=== PATIENT | female | born 1980 | race Caucasian/White ===

== ENCOUNTER 2016-10-27 22:12 | Emergency (ER) | payer SELFPAY ==
[~2016-10-27 22:12] MED LIST: OXYC-323 PO
[2016-10-27 23:03] LABS: BILIRUBIN,URINE NEGATIVE (NEG); GLUCOSE,URINE NEGATIVE (NEG); NITRITE,URINE NEGATIVE (NEG); PH,URINE 5.5; PROTEIN,URINE NEGATIVE (NEG-TRACE); UROBILINOGEN,URINE 0.2 mg/dL (0.2 mg/dL)
[2016-10-27 23:08] LABS: BACTERIA,URINE MOD /HPF (0-FEW); RBC,URINE 0 /HPF (0-2); SQUAMOUS EPITHELIAL CELL,UR FEW /LPF; WBC,URINE 20-40 /HPF (0-4)
[2016-10-27] MEDS ORDERED: PHEN-318 PO (23:14)
[2016-10-27] MEDS ORDERED: NAPROXEN 500 MG TABLET PO ONE (23:15)
[2016-10-27] MEDS ORDERED: PHENAZOPYRIDINE 200 MG TABLET. PO ONE (23:15)
[2016-10-27 23:32] VITALS: BP 101/56
--- NOTE | 2016-10-28 01:11 | ED.ADGEN ---
Past Medical History Past Medical History: Ectopic Past Surgical History: Alcohol Use: None Drug Use: None Adult General Chief Complaint Chief Complaint: ABDOMINAL PAIN HPI HPI Patient is a 35 year old woman, history of ectopic , who is Irish speaking only, who presents the emergency department with a complaint of "burning", in the lower abdomen, and abdominal pain. Patient denies any nausea or vomiting, any fevers, complains occasional chills, denies any diarrhea, denies any weakness, numbness, tingling, any hematuria, although she is experiencing frequency. Patient has ciprofloxacin and ibuprofen in the ED, she was seen yesterday at a clinic, and prescribed ciprofloxacin ibuprofen. Patient states that she did not believe that she had a urinary tract infection, however after discussion and reading the label and prescribing dosage, I do believe that the patient was prescribed for Floxin for a least a presumed urinary tract infection. Patient states she has been taking antibiotics as directed, and was given a three-day course, she states she last took the Cipro Floxin and the ibuprofen at 7:30 in the evening but continues to have "burning", and her lower abdomen. No recent travel or surgery, no history of swelling extremities, any rashes, any other complaints. No discharge or drainage from the vagina, no burning or itching, no concerns for sexually transmitted infections. All history and examination obtained with the assistance of language line american sign language interpreter. Review of Systems Review of Systems Constitutional: Denies fever or chills. [] Eyes: Denies change in visual acuity. [] HENT: Denies nasal congestion or sore throat. [] Respiratory: Denies cough or shortness of breath. [] Cardiovascular: Denies chest pain or edema. [] GI: Denies nausea, vomiting, bloody stools or diarrhea. Complaining of "burning " feeling in the suprapubic region. : Denies dysuria. Frequency. Musculoskeletal: Denies back pain or joint pain. [] Integument: Denies rash. [] Neurologic: Denies headache, focal weakness or sensory changes. [] Endocrine: Denies polyuria or polydipsia. [] Lymphatic: Denies swollen glands. [] Psychiatric: Denies depression or anxiety. [] Current Medications Current Medications Current Medications Medications (Trade) Dose Ordered Sig/Nicholas Start Time Stop Time Status Last Admin Dose Admin Naproxen (Naprosyn) 500 mg 1X ONCE 9/7/17 23:15 10/27/16 23:16 DC 10/27/16 23:28 500 MG Phenazopyridine HCl (Pyridium) 200 mg 1X ONCE 10/27/16 23:15 10/27/16 23:16 DC 10/27/16 23:28 200 MG Allergies Allergies Allergies Coded Allergies Type Severity Reaction Last Updated Verified No Known Drug Allergies 02/27/15 No Physical Exam Physical Exam Constitutional: Well developed, well nourished, no acute distress, non-toxic appearance. [] HENT: Normocephalic, atraumatic, bilateral external ears normal, oropharynx moist, no oral exudates, nose normal. [] Eyes: PERRLA, EOMI, conjunctiva normal, no discharge. [] Neck: Normal range of motion, no tenderness, supple, no stridor. [] Cardiovascular:Heart rate regular rhythm, no murmur , S1, S2, no rubs or gallops.[] Lungs & Thorax: Bilateral breath sounds clear to auscultation, no wheezing, rhonchi, rales. No chest or crepitus or tenderness. [] Abdomen: Bowel sounds normal, soft, mild tenderness to palpation the suprapubic region, no rebound, rigidity, no guarding, negative Tang sign, no other areas of tenderness, no masses, no pulsatile masses. [] Skin: Warm, dry, no erythema, no rash. [] Back: No tenderness, no CVA tenderness. [] Extremities: No tenderness, no cyanosis, no clubbing, ROM intact, no edema. [] Neurologic: Alert and oriented X 3, normal motor function, normal sensory function, no focal deficits noted. [] Psychologic: Affect normal, judgement normal, mood normal. [] Current Patient Data Vital Signs Vital Signs Date Time Temp Pulse Resp B/P (MAP) Pulse Ox O2 Delivery O2 Flow Rate FiO2 10/27/16 22:45 98.1 78 18 101/57 (72) 98 Room Air 98.1 Lab Values Laboratory Tests Test 10/27/16 22:06 10/27/16 22:55 POC Urine HCG, Qualitative Hcg negative (Negative) Urine Collection Type Unknown Urine Color Yellow Urine Clarity Cloudy Urine pH 5.5 Urine Specific [place] <=1.005 Urine Protein Negative mg/dL (NEG-TRACE) Urine Glucose (UA) Negative mg/dL (NEG) Urine Ketones (Stick) Negative mg/dL (NEG) Urine Blood Negative (NEG) Urine Nitrite Negative (NEG) Urine Bilirubin Negative (NEG) Urine Urobilinogen Dipstick 0.2 mg/dL (0.2 mg/dL) Urine Leukocyte Esterase Large (NEG) Urine RBC 0 /HPF (0-2) Urine WBC 20-40 /HPF (0-4) Urine Squamous Epithelial Cells Few /LPF Urine Bacteria Mod /HPF (0-FEW) EKG EKG Not indicated.[] Radiology/Procedures Radiology/Procedures Not indicated.[] Course & Med Decision Making Course & Med Decision Making Pertinent Labs and Imaging studies reviewed. (See chart for details) Urine hCG is negative. Patient well-appearing, with all vital signs within normal limits. Patient examination and history is consistent with a urinary tract infection. Discussion via the language line american sign language interpreter reveals that all the patient was discharged home with prescriptions for treating a urinary tract infection, but she was unclear if she actually had an infection. Patient's urine in the ED reveals 20-40 WBCs with bacteria, negative for nitrates, negative for ketones. I discussed with the patient that her examination and history are most consistent with a urinary tract infection, and that the sensations of burning and cramping are not fully resolved immediately, I recommend she continues her course of ciprofloxacin at this time, and then in addition to the ibuprofen she uses Pyridium. We did discuss concerning symptoms that prompt return to the emergency department, and the usual course of urinary tract infection. Importance of staying well-hydrated discussed. Patient received a dose of naproxen, and of Pyridium in the ED. She also received a prescription for Pyridium, along with clear and detailed return instructions and precautions. Patient voiced understanding and agreement with plan as stated , discharged home in stable condition after tolerating first dose of medication the ED without issue with plan as above. Dragon Disclaimer Dragon Disclaimer This electronic medical record was generated, in whole or in part, using a voice recognition dictation system. Departure Impression: Primary Impression: Urinary tract infection Disposition: 01 HOME, SELF-CARE Condition: IMPROVED Scripts Phenazopyridine Hcl (PYRIDIUM) 200 Mg Tablet 200 MG PO PRN TID Y for BLADDER SPASM, #12 TAB Prov: NATALIE RAZO DO 10/27/16 NATALIE RAZO DO Oct 28, 2016 01:11
== END 2016-10-27 23:33 | disposition home or self-care (01) ==
LOC: ER 22:12
DX: N39.0 Urinary tract infection, site not specified (principal)
CPT/HCPCS: 81001; 81025; 99283